=== PATIENT | male | born 1985 | race Caucasian/White ===

== ENCOUNTER 2017-12-08 17:12 | Emergency (ER) | payer SELFPAY ==
[~2017-12-08] VITALS: Ht 175.3 cm; Wt 74.8 kg
[2017-12-08 17:17] VITALS: Ht 175.3 cm; Wt 74.8 kg
[2017-12-08 18:38] LABS: UA SPECIFIC GRAVITY <=1.005 (1.005-1.035); microscopic required? YES; urine erythrocyte 1+ (NEGATIVE)
[2017-12-08 19:12] LABS: AMPHETAMINE QUAL UR POSITIVE (NEG <=1000)
[2017-12-08 20:15] VITALS: BP 131/82
== END 2017-12-08 20:16 | disposition left against medical advice (07) ==
LOC: ED 17:12
PROVIDERS: Emergency Medicine
DX: N45.1 Epididymitis (principal); N39.0 Urinary tract infection, site not specified; F15.10 Other stimulant abuse, uncomplicated; F17.210 Nicotine dependence, cigarettes, uncomplicated
CPT/HCPCS: 87491; 87591; J0696; J1885